=== PATIENT | female | born 1960 | race African-American/Black ===

== ENCOUNTER → 2016-11-21 | Outpatient (CLI) | payer OTHER ==
[~2016-11-21] MED LIST: CHLORTHALIDONE25 MG PO; COMPLERA TABLE1 EACH PO; KLOR-CON 1010 MEQ PO; LEXAPRO 10 MG T10 M1 PO; MAXALT10 MG PO
--- NOTE | ~2016-11-21 | 2DMMODE ---
[facility] [address] [place] [address] 2 D/M-MODE ECHOCARDIOGRAM Name: NOHELIA VAZQUEZ Room #: [facility]#: [id number] Admission: Attend Phys: Dominique Felipe MD Discharge: Date of : 64 Date of Service: 11/21/16 1608 Report #: [id number] THIS REPORT FOR: //name// APPROVED REPORT Study performed: 11/21/2016 15:27:59 EXAM: Comprehensive 2D, Doppler, and color-flow Echocardiogram Patient Location: Out-Patient Status: routine Other Information Study Quality: Adequate/difficult scan due to body habitus. Indications Cardiomegaly on Xray. Hx: HTN, morbid obesity 2D Dimensions RVDd: 32.36 mm LVEF(%): 55.25 (>50%) IVSd: 11.11 (7-11mm) LVOT Diam: 19.00 (18-24mm) LVDd: 39.50 mm PWd: 10.10 (7-11mm) Ascending Ao: 34.30 (22-36mm) LVDs: 28.32 (25-40mm) Aortic Root: 31.25 mm Powers's LVEF: 55.25 % Volumes Left Atrial Volume (Systole) Single Plane 4CH: 31.61 mL Single Plane 2CH: 36.10 mL LA ESV Index: 16.00 mL/m2 Aortic Valve AoV Peak Juventino.: 1.77 m/s AO Peak Gr.: 12.59 mmHg LVOT Max P.86 mmHg LVOT Max V: 1.31 m/s DANITA Vmax: 2.09 cm2 Mitral Valve E/A Ratio: 0.7 MV Decel. Time: 273.78 ms MV E Max Juventino.: 0.57 m/s MV A Juventino.: 0.79 m/s MV PHT: 79.40 ms [facility] [address] [place] [address] 2 D/M-MODE ECHOCARDIOGRAM Name: CHRIS VAZQUEZCAMRON Meza Room #: [facility]#: [id number] Admission: Attend Phys: Dominique Felipe MD Discharge: Date of : 64 Date of Service: 11/21/16 1608 Report #: [id number] IVRT: 72.66 ms Pulmonary Valve PV Peak Juventino.: 1.05 m/s PV Peak Gr.: 4.38 mmHg Tricuspid Valve TR Peak Juventino.: 1.84 m/s RAP Estimate: 5.00 mmHg TR Peak Gr.: 13.57 mmHg PA Pressure: 19.00 mmHg Left Ventricle The left ventricle is normal size. There is normal LV segmental wall motion. There is normal left ventricular wall thickness. Left ventricular systolic function is normal. LVEF is 60-65%. Mild diastolic dysfunction is present (impaired relaxation pattern). Right Ventricle The right ventricle is normal size. The right ventricular systolic function is normal. Atria The left atrium size is normal. The right atrium size is normal. Aortic Valve The aortic valve is normal in structure. No aortic regurgitation is present. There is no aortic valvular stenosis. Mitral Valve The mitral valve is normal in structure. There is no mitral valve regurgitation noted. No evidence of mitral valve stenosis. Tricuspid Valve The tricuspid valve is normal in structure. There is trace tricuspid regurgitation. The right atrial pressure is estimated at 5 mmHg. Estimated PAP is 20mmHg. Pulmonic Valve The pulmonary valve is normal in structure. There is no pulmonic valvular regurgitation. Great Vessels The aortic root is normal in size. The ascending aorta is normal in size. IVC is normal in size and collapses >50% with inspiration. [address] [address] 2 D/M-MODE ECHOCARDIOGRAM Name: NOHELIA VAZQUEZ Susana Room #: [facility]#: [id number] Admission: Attend Phys: Dominique Felipe MD Discharge: Date of : 64 Date of Service: 11/21/16 1608 Report #: [id number] Pericardium There is no pericardial effusion. <Conclusion> The left ventricle is normal size. There is normal left ventricular wall thickness. Left ventricular systolic function is normal. Mild diastolic dysfunction is present (impaired relaxation pattern). The right ventricle is normal size. The left atrium size is normal. The aortic valve is normal in structure. The mitral valve is normal in structure. There is trace tricuspid regurgitation. The right atrial pressure is estimated at 5 mmHg. Estimated PAP is 20mmHg. <ELECTRONICALLY SIGNED> By: Odin Barton MD 11/21/16 1608 1608 1608 Odin Barton MD /INF
== END ==
LOC: CV 11-19 07:21
DX: I51.7 Cardiomegaly (principal); I10 Essential (primary) hypertension